=== PATIENT | female | born 1970 | race Caucasian/White ===

== ENCOUNTER 2017-08-05 14:18 | Emergency (ER) | payer MEDICAID ==
[~2017-08-05] VITALS: Ht 167.6 cm; Wt 74.3 kg
[2017-08-05 14:21] VITALS: BP 117/76
[2017-08-05] MEDS ORDERED: metFORMIN 500 MG TABLET PO STA (14:40)
[2017-08-05] MEDS ORDERED: SULFAMETH./TRIMETHOPRIM DS 800MG/160MG TABLET ONE (14:52)
[2017-08-05 15:00] LABS: HEMOGLOBIN 15.9 g/dL (11.7-16.4); WHITE BLOOD COUNT 12.3 x10^3/uL (3.4-10)
[2017-08-05] MEDS ORDERED: SODIUM CHLORIDE 0.9% 1,000ML IVBOLUS ONE (15:00)
[2017-08-05] MEDS ORDERED: SULFAMETH./TRIMETHOPRIM DS 800MG/160MG TABLET PO ONE (15:00)
[2017-08-05] MEDS ORDERED: SODIUM CHLORIDE FLUSH 10ML SYR IVF ONE (15:00)
[2017-08-05 15:10] LABS: BLOOD UREA NITROGEN 13 mg/dL (7-18)
== END 2017-08-05 16:28 | disposition home or self-care (01) ==
LOC: ED 16:26
DX: L03.111 Cellulitis of right axilla (principal); E11.65 Type 2 diabetes mellitus with hyperglycemia
CPT/HCPCS: 36415; 80048; 82040; 82962; 85025; 96360; 99284; J7030

== ENCOUNTER 2018-05-24 19:45 | Emergency (ER) | payer MEDICAID ==
[~2018-05-24] VITALS: Ht 167.6 cm; Wt 74.3 kg
[~2018-05-24 19:45] MED LIST: METF500T5 PO
[2018-05-24 19:47] VITALS: BP 143/86
== END 2018-05-24 21:03 | disposition home or self-care (01) ==
LOC: ED 20:57
DX: L02.414 Cutaneous abscess of left upper limb (principal); E11.65 Type 2 diabetes mellitus with hyperglycemia
CPT/HCPCS: 82962; 99283

== ENCOUNTER 2019-11-09 14:14 | Emergency (ER) | payer MEDICAID ==
[~2019-11-09] VITALS: Ht 167.6 cm; Wt 73.8 kg
[~2019-11-09 14:14] MED LIST changes: +METF500T17 PO; -METF500T5 PO
[2019-11-09 14:34] VITALS: BP 111/54
[2019-11-09 15:45] LABS: BASOPHILS # (AUTO) 0.02 x10^3/uL (0-0.1); BASOPHILS % (AUTO) 0 % (0-1); EOSINOPHILS # (AUTO) 0.19 x10^3/uL (0-0.4); EOSINOPHILS % (AUTO) 3 % (1-7); LYMPHOCYTES # (AUTO) 1.81 x10^3/uL (1-3.4); LYMPHOCYTES % (AUTO) 24 % (22-44); MD NO; MEAN CORPUSCULAR HEMOGLOBIN 31.2 pg (27.0-34.8); MEAN CORPUSCULAR HGB CONC 34.6 g/dL (32.4-35.8); MEAN CORPUSCULAR VOLUME 90.4 fL (80-100); MEAN PLATELET VOLUME 8.5 fL (7.4-10.4); MONOCYTES # (AUTO) 0.48 x10^3/uL (0.2-0.8); MONOCYTES % (AUTO) 6 % (2-9); NEUTROPHILS # (AUTO) 5.17 x10^3/uL (1.8-6.8); NEUTROPHILS % (AUTO) 67 % (42-75); PLATELET COUNT 339 x10^3/uL (130-400); RED CELL DISTRIBUTION WIDTH 12.4 % (9.6-15.2)
[2019-11-09 15:56] LABS: ALANINE AMINOTRANSFERASE 29 U/L (12-78); ALBUMIN 3.2 g/dL (3.4-5.0); ANION GAP 8 mmol/L (5-15); CALCIUM 8.6 mg/dL (8.5-10.1); CHLORIDE 103 mmol/L (98-107); CREATININE 0.83 mg/dL (0.55-1.02)
--- NOTE | 2019-11-09 15:59 | NUR ---
PT HERE FOR DYSURIA, CHILLS AND R FLANK PAIN. PT WITH HX OF MULTIPLE UTIS. UA SAMPLE COLLECTED AND WALKED TO LAB.
[2019-11-09 16:00] LABS: MICROSCOPIC NOT IND
[2019-11-09 16:01] LABS: ALKALINE PHOSPHATASE 107 U/L (45-117); BILIRUBIN,TOTAL 0.4 mg/dL (0.2-1.0); TOTAL PROTEIN 7.3 g/dL (6.4-8.2)
[2019-11-09 16:07] LABS: CULTURE INDICATED? NO
== END 2019-11-09 17:37 | disposition home or self-care (01) ==
LOC: ED 17:30
DX: R30.0 Dysuria (principal); E11.65 Type 2 diabetes mellitus with hyperglycemia; M54.5 Low back pain; R11.0 Nausea; R50.9 Fever, unspecified
CPT/HCPCS: 36415; 80053; 81003; 84703; 85025; 99283